=== PATIENT | female | born 1935 | race Caucasian/White ===

== ENCOUNTER → 2016-03-20 | Outpatient (CLI) | payer MEDICARE, BC ==
[~2016-03-20] MED LIST: ASPI325T24 PO; ATEN1TAB74 PO; BENZ100 PO; BISMS PO; FEXO180T PO; LACT PO; LIPI40TA PO; LOPE2 PO; LORA-474 PO; MAXZ25 PO; METF500 PO; SYNT125T PO; VITA400C70 PO
[2016-03-20 09:18] LABS: BASOPHIL # 0.1 TH/MM3 (0-0.2); BASOPHIL % 0.8 % (0.0-2.0); EOSINOPHIL # 0.2 TH/MM3 (0-0.4); EOSINOPHIL % 2.2 % (0.0-4.0); HEMATOCRIT 38.9 % (35.0-46.0); HEMO FLAGS DIFF FINAL; LYMPH % 41.9 % (9.0-44.0); LYMPHOCYTE # 2.9 TH/MM3 (1.0-4.8); MEAN CELL VOLUME 80.3 FL (80.0-100.0); MEAN CORPUSCULAR HEMOGLOBIN 27.3 PG (27.0-34.0); MONO % 11.2 % (0.0-8.0); NEUT % 43.9 % (16.0-70.0); PLATELET COUNT 282 TH/MM3 (150-450); RED BLOOD COUNT 4.85 MIL/MM3 (4.00-5.30); RED CELL DISTRIBUTION WIDTH 14.9 % (11.6-17.2); WHITE BLOOD COUNT 6.8 TH/MM3 (4.0-11.0)
[2016-03-20 09:27] LABS: BACTERIA, URINE RARE /hpf; BLOOD, URINE NEG (NEG); COMMENT (UR) CULT NOT INDICATED; CULTURE IF INDICATED CULT NOT INDICATED; GLUCOSE,URINE NEG (NEG); HYALINE CAST, URINE 1 /lpf (RARE); KETONE, URINE NEG (NEG); MUCUS URINE FEW /lpf (OCC); NITRITE,URINE NEG (NEG); PH, URINE 5.5 (5.0-8.5); SQUAMOUS EPITHELIAL CELL URINE 4 /hpf (0-5); URINE COLOR YELLOW (YELLW/STRAW)
[2016-03-20 09:53] LABS: ALKALINE PHOSPHATASE 95 U/L (45-117); ALT (GPT) 25 U/L (10-53); ANION GAP 9 MEQ/L (5-15); AST (GOT) 20 U/L (15-37); BICARBONATE 28.9 MEQ/L (21.0-32.0); BLOOD UREA NITROGEN 13 MG/DL (7-18); CHLORIDE 93 MEQ/L (98-107); GLOMERULAR FILTRATION RATE 58 ML/MIN (>89); GLUCOSE,FASTING 141 MG/DL (74-99); HDL CHOLESTEROL 65.9 MG/DL (40.0-60.0); LDL CHOLESTEROL 75 MG/DL (0-99); POTASSIUM 4.5 MEQ/L (3.5-5.1); SODIUM (NA) 131 MEQ/L (136-145); TOTAL BILIRUBIN ADULT 0.5 MG/DL (0.2-1.0)
[2016-03-20 10:25] LABS: MICRO ALBUMIN RANDOM URINE RAW 13.7 MG/L (0.0-30.0)
[2016-03-20 13:43] LABS: HEMOGLOBIN A1a 1.1 %; HEMOGLOBIN A1b 2.5 %; HEMOGLOBIN Ao 81.1 %; HEMOGLOBIN LA1C 2.3 %; HEMOGLOBIN P3 4.6 %
== END ==
LOC: PLAB 08:01
PROVIDERS: ATTEND Internal Medicine
DX: E11.65 Type 2 diabetes mellitus with hyperglycemia (principal); E03.9 Hypothyroidism, unspecified; I10 Essential (primary) hypertension
CPT/HCPCS: 36415; 80053; 80061; 81001; 82043; 83036; 84443; 85025

== ENCOUNTER → 2016-07-17 | Outpatient (CLI) | payer MEDICARE, BC ==
[2016-07-17 10:08] LABS: ANION GAP 10 MEQ/L (5-15); AST (GOT) 26 U/L (15-37); BICARBONATE 29.2 MEQ/L (21.0-32.0); BLOOD UREA NITROGEN 11 MG/DL (7-18); CHLORIDE 90 MEQ/L (98-107); GLOMERULAR FILTRATION RATE 63 ML/MIN (>89); GLUCOSE,FASTING 153 MG/DL (74-99); POTASSIUM 4.1 MEQ/L (3.5-5.1); SODIUM (NA) 129 MEQ/L (136-145)
[2016-07-17 10:09] LABS: ALT (GPT) 31 U/L (10-53)
[2016-07-17 10:12] LABS: ALKALINE PHOSPHATASE 91 U/L (45-117); HDL CHOLESTEROL 54.6 MG/DL (40.0-60.0); LDL CHOLESTEROL 70 MG/DL (0-99); TOTAL BILIRUBIN ADULT 0.6 MG/DL (0.2-1.0)
[2016-07-17 16:35] LABS: HEMOGLOBIN A1a 1.1 %; HEMOGLOBIN A1b 2.7 %; HEMOGLOBIN Ao 80.3 %; HEMOGLOBIN LA1C 2.4 %; HEMOGLOBIN P3 6.1 %
== END ==
LOC: PLAB 08:01
PROVIDERS: ATTEND Internal Medicine
DX: E11.65 Type 2 diabetes mellitus with hyperglycemia (principal)
CPT/HCPCS: 36415; 80053; 80061; 83036

== ENCOUNTER → 2016-10-28 | Outpatient (CLI) | payer MEDICARE, BC ==
[2016-10-28 13:39] LABS: ANION GAP 12 MEQ/L (5-15); AST (GOT) 26 U/L (15-37); BICARBONATE 24.2 MEQ/L (21.0-32.0); BLOOD UREA NITROGEN 19 MG/DL (7-18); CHLORIDE 97 MEQ/L (98-107); GLOMERULAR FILTRATION RATE 61 ML/MIN (>89); GLUCOSE,FASTING 123 MG/DL (74-99); POTASSIUM 4.2 MEQ/L (3.5-5.1); SODIUM (NA) 133 MEQ/L (136-145)
[2016-10-28 13:40] LABS: ALT (GPT) 33 U/L (10-53)
[2016-10-28 13:42] LABS: ALKALINE PHOSPHATASE 84 U/L (45-117); HDL CHOLESTEROL 59.3 MG/DL (40.0-60.0); LDL CHOLESTEROL 64 MG/DL (0-99); TOTAL BILIRUBIN ADULT 0.5 MG/DL (0.2-1.0)
[2016-10-28 14:13] LABS: HEMOGLOBIN A1a 1.2 %; HEMOGLOBIN A1b 2.6 %; HEMOGLOBIN Ao 80.8 %; HEMOGLOBIN LA1C 2.5 %; HEMOGLOBIN P3 4.4 %
== END ==
LOC: PLAB 08:45
PROVIDERS: ATTEND Internal Medicine
DX: E11.65 Type 2 diabetes mellitus with hyperglycemia (principal)
CPT/HCPCS: 36415; 80053; 80061; 83036

== ENCOUNTER 2017-01-07 21:29 | Inpatient (IN) | payer MEDICARE, BC ==
[~2017-01-07] VITALS: Ht 152.4 cm; Wt 80.0 kg
[2017-01-07 21:32] VITALS: BP 205/95; PULSE 74; RESP 16; TEMP 100.3; O2SAT 98
[2017-01-07] MEDS ORDERED: cefTRIAXone INJ 2,000 MG in SODIUM CHLORIDE 0.9% INJ 100 ML IV STA (21:46)
[2017-01-07] MEDS ORDERED: SODIUM CHLOR 0.9% 1000 ML INJ 800 ML IV ONE (21:46)
[2017-01-07] MEDS ORDERED: AZITHROMYCIN INJ 500 MG in SODIUM CHLOR 0.9% 250 ML INJ 250 ML IV STA (21:46)
[2017-01-07] MEDS ORDERED: SODIUM CHLOR 0.9% 1000 ML INJ 1,000 ML IV ONE (21:46)
--- NOTE | 2017-01-07 21:55 | PD ---
HPI Chief Complaint: Respiratory Symptoms Time Seen by Provider: 21:46 Travel History International Travel<30 days: No Contact w/Intl Traveler<30days: No Traveled to known affect area: No History of Present Illness HPI 81 yo F c/o cough and shortness of breath increasing for the past few days. + subjective fever. no chest pain. no nausea or vomiting. a similar episode occurred one year prior ultimately diagnosed as pneumonia with sepsis. pt reprots hx htn, hld, dm2, cad with hx bowel resection. respiratory distress was audible to patient's family member thus prompting tonight's evaluation. PFSH Past Medical History Hx Anticoagulant Therapy: Yes (ASA 325 MG PO DAILY) Arthritis: Yes Anxiety: Yes Cancer: Yes (colon, left breast cancer with lymph node removal) Cardiovascular Problems: Yes (2 STENTS) High Cholesterol: Yes Chemotherapy: Yes (BREAST AND COLON CA) COPD: Yes Coronary Artery Disease: Yes Diabetes: Yes Patient Takes Glucophage: Yes (metformin ) Diminished Hearing: No Diverticulitis: Yes Endocrine: Yes Gastrointestinal Disorders: Yes GERD: Yes Genitourinary: No Hepatitis: No Hiatal Hernia: No Hypertension: Yes Immune Disorder: No Musculoskeletal: Yes Neurologic: No Psychiatric: Yes (ANXIETY) Reproductive: No Respiratory: Yes Myocardial Infarction: Yes Pneumonia: Yes (3 weeks ago ) Radiation Therapy: No Thyroid Disease: Yes Menopausal: Yes : 4 Para: 3 Past Surgical History Abdominal Surgery: Yes (colon resection-r/t diverticulitis) Appendectomy: Yes Body Medical Devices: LEFT BREAST IMPLANT Cholecystectomy: Yes Coronary Stent: Yes (X2 -2002) Eye Surgery: Yes (bilat CATARACT SX) Gynecologic Surgery: Yes (HYSTERECTOMY. RECONSTRUCTION OF BOTH BREASTS) Hysterectomy: Yes Mastectomy: Yes (LEFT 2009 with lymph node removal) Pacemaker: No Other Surgery: Yes Social History Alcohol Use: No Tobacco Use: No Substance Use: No Allergies-Medications (Allergen,Severity, Reaction): Coded Allergies: codeine (Unverified Allergy, Severe, Nausea/Vomiting, 01/07/17) diatrizoate meglumine (Unverified Allergy, Severe, RASH AND ITCHING, 01/07) gadobenic acid (Unverified Allergy, Severe, RASH AND ITCHING, 01/07/17) gadodiamide (Unverified Allergy, Severe, RASH AND ITCHING, 01/07/17) gadoteridol (Unverified Allergy, Severe, RASH AND ITCHING, 01/07/17) iodixanol (Unverified Allergy, Severe, RASH AND ITCHING, 01/07/17) iohexol (Unverified Allergy, Severe, RASH AND ITCHING, 01/07/17) Reported Meds & Prescriptions Reported Meds & Active Scripts Active Reported Synthroid (Levothyroxine Sodium) 125 Mcg Tab 125 Mcg PO DAILY@0600 Lorazepam 1 Mg Tab 1 Mg PO HS Lipitor (Atorvastatin Calcium) 20 Mg Tab 20 Mg PO HS Synthroid (Levothyroxine Sodium) 125 Mcg Tab 125 Mcg PO AC BREAKFAST Claritin (Loratadine) 10 Mg Cap 10 Mg PO NIGHTLY Vitamin E 100 Unit Tab 400 Units PO DAILY Ecotrin Regular Strength (Aspirin) 325 Mg Tabdr 325 Mg PO DAILY Glimepiride 2 Mg Tab 4 Mg PO BID Metformin (Metformin HCl) 500 Mg Tab 500 Mg PO BID [Triamterene-Hctz] 37.5mg-25mg 0.5 Tab PO DAILY Atenolol 50 Mg Tab 50 Mg PO DAILY Atorvastatin (Atorvastatin Calcium) 20 Mg Tab 20 Mg PO NIGHTLY Review of Systems Except as stated in HPI: all other systems reviewed are Neg General / Constitutional: Positive: Fever Cardiovascular: No: Chest Pain or Discomfort Respiratory: Positive: Cough, Shortness of Breath, Wheezing Physical Exam Narrative GENERAL: 81 yo F, WNWD, speaking sentences, sitting upright at the end of her bed SKIN: Warm and dry. HEAD: Atraumatic. Normocephalic. EYES: Pupils equal and round. No scleral icterus. No injection or drainage. ENT: No nasal bleeding or discharge. Mucous membranes pink and moist. NECK: Trachea midline. No JVD. CARDIOVASCULAR: Regular rate and rhythm. RESPIRATORY: Occasional cough. Lungs clear. Minimal wheezing bilaterally. GASTROINTESTINAL: Abdomen soft, non-tender, nondistended. Hepatic and splenic margins not palpable. MUSCULOSKELETAL: Extremities without clubbing, cyanosis, or edema. No obvious deformities. NEUROLOGICAL: Awake and alert. No obvious cranial nerve deficits. Motor grossly within normal limits. Five out of 5 muscle strength in the arms and legs. Normal speech. PSYCHIATRIC: Appropriate mood and affect; insight and judgment normal. Data Data Last Documented VS Vital Signs Date Time Temp Pulse Resp B/P (MAP) Pulse Ox O2 Delivery O2 Flow Rate FiO2 01/07/17 23:20 Room Air 01/07/17 23:20 97 01/07/17 23:20 98.7 78 22 vs reviewed Orders Orders Sepsis Workup Initiated (01/07/17 ) Complete Blood Count With Diff (01/07/17 21:46) Comprehensive Metabolic Panel (01/07/17 21:46) Lactic Acid Sepsis Protocol (01/07/17 21:46) Urinalysis - C+S If Indicated (01/07/17 21:46) Blood Culture (01/07/17 21:46) Chest, Single Ap (01/07/17 21:46) Blood Glucose (01/07/17 21:46) Ecg Monitoring (01/07/17 21:46) Iv Access Insert/Monitor (01/07/17 21:46) Oximetry (01/07/17 21:46) Oxygen Administration (01/07/17 21:46) Acetaminophen (Tylenol) (01/07/17 22:00) Ceftriaxone Inj (Rocephin Inj) (01/07/17 21:46) Azithromycin Inj (Zithromax Inj) (01/07/17 21:46) Acetaminophen (Tylenol) (01/07/17 22:00) Sodium Chlor 0.9% 1000 Ml Inj (Ns 1000 M (01/07/17 21:46) Sodium Chlor 0.9% 1000 Ml Inj (Ns 1000 M (01/07/17 21:46) B-Type Natriuretic Peptide (01/07/17 22:06) Influenzae A/B Antigen (01/07/17 22:10) Urine Culture (01/07/17 23:18) Group A Rapid Strep Screen (01/08/17 00:27) Sodium Chlorid 0.9% 500 Ml Inj (Ns 500 M (01/08/17 00:30) Admit Order (Ed Use Only) (01/08/17 ) Full Stack Developer / Telemetry [email or web address] (01/08/17 00:42) Vital Signs (Adult) Q4H (01/08/17 00:42) Activity Oob With Assistance (01/08/17 00:42) Notify Dr: Other (01/08/17 00:42) Labs Laboratory Tests Test 01/07/17 23:05 01/07/17 23:18 01/07/17 23:45 White Blood Count 10.6 TH/MM3 Red Blood Count 4.37 MIL/MM3 Hemoglobin 12.0 GM/DL Hematocrit 35.0 % Mean Corpuscular Volume 80.1 FL Mean Corpuscular Hemoglobin 27.5 PG Mean Corpuscular Hemoglobin Concent 34.3 % Red Cell Distribution Width 14.6 % Platelet Count 326 TH/MM3 Mean Platelet Volume 7.6 FL Neutrophils (%) (Auto) 62.4 % Lymphocytes (%) (Auto) 25.6 % Monocytes (%) (Auto) 10.6 % Eosinophils (%) (Auto) 0.8 % Basophils (%) (Auto) 0.6 % Neutrophils # (Auto) 6.6 TH/MM3 Lymphocytes # (Auto) 2.7 TH/MM3 Monocytes # (Auto) 1.1 TH/MM3 Eosinophils # (Auto) 0.1 TH/MM3 Basophils # (Auto) 0.1 TH/MM3 CBC Comment DIFF FINAL Differential Comment Blood Urea Nitrogen 27 MG/DL Creatinine 1.12 MG/DL Random Glucose 140 MG/DL Total Protein 8.3 GM/DL Albumin 3.6 GM/DL Calcium Level 8.7 MG/DL Alkaline Phosphatase 111 U/L Aspartate Amino Transf (AST/SGOT) 21 U/L Alanine Aminotransferase (ALT/SGPT) 28 U/L Total Bilirubin 0.4 MG/DL Sodium Level 123 MEQ/L Potassium Level 3.4 MEQ/L Chloride Level 89 MEQ/L Carbon Dioxide Level 23.4 MEQ/L Anion Gap 11 MEQ/L Estimat Glomerular Filtration Rate 47 ML/MIN B-Type Natriuretic Peptide 26 PG/ML Urine Color YELLOW Urine Turbidity HAZY Urine pH 5.0 Urine Specific [place] 1.014 Urine Protein TRACE mg/dL Urine Glucose (UA) NEG mg/dL Urine Ketones NEG mg/dL Urine Occult Blood TRACE Urine Nitrite NEG Urine Bilirubin NEG Urine Urobilinogen LESS THAN 2.0 MG/DL Urine Leukocyte Esterase MOD Urine RBC 1 /hpf Urine WBC 7 /hpf Urine Squamous Epithelial Cells 6 /hpf Urine Transitional Epithelial Cells <1 /hpf Urine Bacteria RARE /hpf Urine Hyaline Casts 6 /lpf Urine Mucus FEW /lpf Microscopic Urinalysis Comment CATH-CULTURE IND Lactic Acid Level 2.6 mmol/L MDM Medical Decision Making Medical Screen Exam Complete: Yes Emergency Medical Condition: Yes Medical Record Reviewed: Yes Differential Diagnosis sepsis, pna, bronchitis Narrative Course presentation could be consistent with sepsis work up started in [facility] with plan for transfer to medical bed Steve Guaman MD Jan 07, 2017 21:55
[2017-01-07] MEDS ORDERED: ACETAMINOPHEN 325 MG TAB PO ONE ×2 (22:00)
--- NOTE | 2017-01-07 22:08 | RADRPT ---
EXAM DATE/TIME: 01/07/2017 19:55 [facility] COMPARISON: CHEST SINGLE AP, May 01, 2015, 2:51. INDICATIONS : Cough MEDICAL HISTORY : Carcinoma, breast. Carcinoma, colon. SURGICAL HISTORY : None. ENCOUNTER: Initial ACUITY: 3 weeks PAIN SCORE: 0/10 LOCATION: Bilateral chest FINDINGS: A single view of the chest demonstrates mild basilar atelectasis. No effusion. No pneumothorax. Heart size within normal limits. Tortuous aorta. CONCLUSION: 1. Mild basilar atelectasis. No effusion or pneumothorax. Rod Posey MD on January 07, 2017 at 22:05 Board Certified Radiologist. This report was verified electronically.
[2017-01-07 23:20] VITALS: PULSE 78; RESP 22; TEMP 98.7; O2SAT 98
[2017-01-07 23:58] LABS: AUTOMATED NEUTROPHIL # 6.6 TH/MM3 (1.8-7.7); BASOPHIL # 0.1 TH/MM3 (0-0.2); BASOPHIL % 0.6 % (0.0-2.0); EOSINOPHIL # 0.1 TH/MM3 (0-0.4); EOSINOPHIL % 0.8 % (0.0-4.0); HEMO FLAGS DIFF FINAL; LYMPH % 25.6 % (9.0-44.0); LYMPHOCYTE # 2.7 TH/MM3 (1.0-4.8); MEAN CELL VOLUME 80.1 FL (80.0-100.0); MEAN CORPUSCULAR HEMOGLOBIN 27.5 PG (27.0-34.0); MEAN CORPUSCULAR HGB CONC 34.3 % (32.0-36.0); MONO % 10.6 % (0.0-8.0); NEUT % 62.4 % (16.0-70.0); PLATELET COUNT 326 TH/MM3 (150-450); RED BLOOD COUNT 4.37 MIL/MM3 (4.00-5.30); RED CELL DISTRIBUTION WIDTH 14.6 % (11.6-17.2); WHITE BLOOD COUNT 10.6 TH/MM3 (4.0-11.0)
[2017-01-08] VITALS (8 sets, daily range): BP systolic 100–131; BP diastolic 45–60; PULSE 58–73; RESP 18–20; TEMP 95.9–99.5; O2SAT 96–99
[2017-01-08 00:11] LABS: BACTERIA, URINE RARE /hpf; BLOOD, URINE TRACE (NEG); COMMENT (UR) CATH-CULTURE IND; CULTURE IF INDICATED CATH CULTURE IND; GLUCOSE,URINE NEG (NEG); HYALINE CAST, URINE 6 /lpf (RARE); KETONE, URINE NEG (NEG); MUCUS URINE FEW /lpf (OCC); NITRITE,URINE NEG (NEG); SQUAMOUS EPITHELIAL CELL URINE 6 /hpf (0-5); TRANSITIONAL EPI CELLS, URINE <1 /hpf; URINE COLOR YELLOW (YELLW/STRAW)
[2017-01-08 00:19] LABS: ALKALINE PHOSPHATASE 111 U/L (45-117); ALT (GPT) 28 U/L (10-53); ANION GAP 11 MEQ/L (5-15); AST (GOT) 21 U/L (15-37); BICARBONATE 23.4 MEQ/L (21.0-32.0); BLOOD UREA NITROGEN 27 MG/DL (7-18); CHLORIDE 89 MEQ/L (98-107); GLOMERULAR FILTRATION RATE 47 ML/MIN (>89); POTASSIUM 3.4 MEQ/L (3.5-5.1); TOTAL BILIRUBIN ADULT 0.4 MG/DL (0.2-1.0)
[2017-01-08 00:22] LABS: SODIUM (NA) 123 MEQ/L (136-145)
[2017-01-08] MEDS ORDERED: SODIUM CHLORID 0.9% 500 ML INJ 500 ML IV ONE (00:30)
--- NOTE | 2017-01-08 00:50 | PD ---
Physical Exam Narrative Patient was signed out to me pending laboratory results. Briefly patient comes in complaining of sinus congestion, sore throat, difficulty breathing ongoing for approximately 3 weeks. Patient states she was on antibiotics previously for 8 days last dose approximately 2 weeks ago without improvement for symptoms. Symptoms are worse at night when she lays down, but do not be able to breathe. Patient denies any chest pain with this, nausea, vomiting, or headache. Patient states she constantly blows out yellowish-green mucus from her nose. Patient states she takes an allergy pill at night without improvement of her symptoms. GENERAL: Well-developed, well nourished, in no acute distress, and non-ill appearing. SKIN: Focused skin assessment warm and dry. HEAD: Atraumatic. Normocephalic. EYES: Pupils equal and round. EOMI. No scleral icterus. No injection or drainage. ENT: No nasal bleeding or discharge. Mucous membranes pink and moist. Tympanic membranes pearly jorgensen bilaterally. Posterior phalanx non-Erythematous without exudate. Uvula is midline. No tenderness to patient sinuses to palpation. NECK: Trachea midline. Supple. No nuclear rigidity. CARDIOVASCULAR: Regular rate and rhythm. No murmur appreciated. RESPIRATORY: No accessory muscle use. No respiratory distress. Clear to auscultation. Breath sounds equal bilaterally. MUSCULOSKELETAL: No obvious deformities. No clubbing. No cyanosis. No edema. Full range of motion. NEUROLOGICAL: Awake and alert. No obvious cranial nerve deficits. Motor grossly within normal limits. Normal speech. PSYCHIATRIC: Appropriate mood and affect; insight and judgment normal. Data Data Last Documented VS Vital Signs Date Time Temp Pulse Resp B/P (MAP) Pulse Ox O2 Delivery O2 Flow Rate FiO2 01/07/17 23:20 98.7 78 22 98 Room Air Orders Orders Sepsis Workup Initiated (01/07/17 ) Complete Blood Count With Diff (01/07/17 21:46) Comprehensive Metabolic Panel (01/07/17 21:46) Lactic Acid Sepsis Protocol (01/07/17 21:46) Urinalysis - C+S If Indicated (01/07/17 21:46) Blood Culture (01/07/17 21:46) Chest, Single Ap (01/07/17 21:46) Blood Glucose (01/07/17 21:46) Ecg Monitoring (01/07/17 21:46) Iv Access Insert/Monitor (01/07/17 21:46) Oximetry (01/07/17 21:46) Oxygen Administration (01/07/17 21:46) Acetaminophen (Tylenol) (01/07/17 22:00) Ceftriaxone Inj (Rocephin Inj) (01/07/17 21:46) Azithromycin Inj (Zithromax Inj) (01/07/17 21:46) Acetaminophen (Tylenol) (01/07/17 22:00) Sodium Chlor 0.9% 1000 Ml Inj (Ns 1000 M (01/07/17 21:46) Sodium Chlor 0.9% 1000 Ml Inj (Ns 1000 M (01/07/17 21:46) B-Type Natriuretic Peptide (01/07/17 22:06) Influenzae A/B Antigen (01/07/17 22:10) Urine Culture (01/07/17 23:18) Group A Rapid Strep Screen (01/08/17 00:27) Sodium Chlorid 0.9% 500 Ml Inj (Ns 500 M (01/08/17 00:30) Admit Order (Ed Use Only) (01/08/17 ) Dusting And Brushing Machine Operator / Telemetry [email or web address].[email or web address] (01/08/17 00:42) Vital Signs (Adult) Q4H (01/08/17 00:42) Diet 1999 Ada Cons Carb (01/08/17 Breakfast) Activity Oob With Assistance (01/08/17 00:42) Notify Dr: Other (01/08/17 00:42) Labs Laboratory Tests Test 01/07/17 23:05 01/07/17 23:18 01/07/17 23:45 White Blood Count 10.6 TH/MM3 Red Blood Count 4.37 MIL/MM3 Hemoglobin 12.0 GM/DL Hematocrit 35.0 % Mean Corpuscular Volume 80.1 FL Mean Corpuscular Hemoglobin 27.5 PG Mean Corpuscular Hemoglobin Concent 34.3 % Red Cell Distribution Width 14.6 % Platelet Count 326 TH/MM3 Mean Platelet Volume 7.6 FL Neutrophils (%) (Auto) 62.4 % Lymphocytes (%) (Auto) 25.6 % Monocytes (%) (Auto) 10.6 % Eosinophils (%) (Auto) 0.8 % Basophils (%) (Auto) 0.6 % Neutrophils # (Auto) 6.6 TH/MM3 Lymphocytes # (Auto) 2.7 TH/MM3 Monocytes # (Auto) 1.1 TH/MM3 Eosinophils # (Auto) 0.1 TH/MM3 Basophils # (Auto) 0.1 TH/MM3 CBC Comment DIFF FINAL Differential Comment Blood Urea Nitrogen 27 MG/DL Creatinine 1.12 MG/DL Random Glucose 140 MG/DL Total Protein 8.3 GM/DL Albumin 3.6 GM/DL Calcium Level 8.7 MG/DL Alkaline Phosphatase 111 U/L Aspartate Amino Transf (AST/SGOT) 21 U/L Alanine Aminotransferase (ALT/SGPT) 28 U/L Total Bilirubin 0.4 MG/DL Sodium Level 123 MEQ/L Potassium Level 3.4 MEQ/L Chloride Level 89 MEQ/L Carbon Dioxide Level 23.4 MEQ/L Anion Gap 11 MEQ/L Estimat Glomerular Filtration Rate 47 ML/MIN B-Type Natriuretic Peptide 26 PG/ML Urine Color YELLOW Urine Turbidity HAZY Urine pH 5.0 Urine Specific [place] 1.014 Urine Protein TRACE mg/dL Urine Glucose (UA) NEG mg/dL Urine Ketones NEG mg/dL Urine Occult Blood TRACE Urine Nitrite NEG Urine Bilirubin NEG Urine Urobilinogen LESS THAN 2.0 MG/DL Urine Leukocyte Esterase MOD Urine RBC 1 /hpf Urine WBC 7 /hpf Urine Squamous Epithelial Cells 6 /hpf Urine Transitional Epithelial Cells <1 /hpf Urine Bacteria RARE /hpf Urine Hyaline Casts 6 /lpf Urine Mucus FEW /lpf Microscopic Urinalysis Comment CATH-CULTURE IND Lactic Acid Level 2.6 mmol/L MDM Supervised Visit with BRENDA: No Narrative Course Patient was seen and examined. Labs were reviewed. She was given 500 bolus of normal saline secondary to low sodium. Discussed all findings and plan of care with patient and family. Patient is agreeable for admission. All questions were answered. Discussed patient with hospitalist who is agreeable to admit the patient. Physician Communication Physician Communication [id number] Suarez, who is agreeable to admit the patient. Diagnosis Primary Impression: Hyponatremia Additional Impressions: Sinus congestion Elevated lactic acid level Dyspnea Qualified Codes: R06.00 - Dyspnea, unspecified Admitting Information Admitting Physician Requests: Observation Condition: Stable Jostin Bowles Jan 08, 2017 00:50
[2017-01-08] MEDS ORDERED: CLAR10CA3 PO (01:06)
[2017-01-08] MEDS ORDERED: VITA100T65 PO (01:06)
[2017-01-08] MEDS ORDERED: TRIAMTERENE-HCTZ PO (01:06)
[2017-01-08] MEDS ORDERED: GLIM2TAB PO (01:06)
[2017-01-08] MEDS ORDERED: METF500T PO (01:06)
[2017-01-08] MEDS ORDERED: ATOR20TA15 PO (01:06)
[2017-01-08] MEDS ORDERED: LORA1TAB12 PO ×2 (01:06→02:36)
[2017-01-08] MEDS ORDERED: ASPI-146 PO (01:06)
[2017-01-08] MEDS ORDERED: ATEN50TA PO (01:06)
[2017-01-08] MEDS ORDERED: LEVO.125 PO ×2 (01:12→02:41)
[2017-01-08] MEDS ORDERED: SODIUM CHLOR 0.9% 1000 ML INJ 1,000 ML IV SCH (01:13)
[2017-01-08] MEDS ORDERED: MAGNESIUM HYDROXIDE SUSP 30 ML CUP PO PRN (01:15)
[2017-01-08] MEDS ORDERED: SODIUM CHLORIDE 0.9% FLUSH 10 ML FLUSH IV FLUSH PRN (01:15)
[2017-01-08] MEDS ORDERED: NALOXONE HCL 0.4 MG/ML AMP IV PUSH PRN (01:15)
[2017-01-08] MEDS ORDERED: SENNOSIDES 8.6 MG TAB PO PRN (01:15)
[2017-01-08] MEDS ORDERED: POTASSIUM CHLORIDE 20 MEQ CONTROLLED RELEASE TAB PO ONE (01:15)
[2017-01-08] MEDS ORDERED: ACETAMINOPHEN 325 MG TAB PO PRN (01:15)
[2017-01-08] MEDS ORDERED: LACTULOSE SYRUP 20 GM/30 ML CUP PO PRN (01:15)
[2017-01-08] MEDS ORDERED: ONDANSETRON HCL 4 MG/2 ML VIAL IVP PRN (01:15)
[2017-01-08] MEDS ORDERED: BISACODYL 10 MG SUPP RECTAL PRN (01:15)
[2017-01-08] MEDS ORDERED: GLUCAGON 1 MG/ML VIAL OTHER PRN (01:30)
[2017-01-08] MEDS ORDERED: DEXTROSE 50% IN WATER 50 ML VIAL(D50) IV PUSH PRN (01:30)
[2017-01-08] MEDS ORDERED: PILL SPLITTER OTHER PRN (01:45)
[2017-01-08 01:47] LABS: LACTIC ACID GHOST NOT REPORTABLE
[2017-01-08] MEDS ORDERED: LIPI20TA PO (02:34)
[2017-01-08] MEDS ORDERED: LORazepam 1 MG TAB PO ONE (03:15)
--- NOTE | 2017-01-08 03:27 | HHI.HP ---
[facility] Terrence Bland MD Admission Diagnosis hyponatremia, sinus congestion Diagnoses: Travel History International Travel<30 Days: No Contact w/Intl Traveler <30 Da: No Traveled to Known Affected Are: No History of Present Illness 81-year-old female with past medical history significant for coronary artery disease, CHF, type 2 diabetes mellitus, hypertension, hyperlipidemia, hypothyroidism and a history of breast and colon cancer presents to the emergency department with a chief complaint of a 3 week history of a sinus infection. The patient reports that she is unable to breathe and is feeling more weak than previous. She reports completing a course of antibiotics prescribed to her by her primary care physician, although she does not know the name of the antibiotic. She reports despite completion of the antibiotic her symptoms have not resolved. She endorses subjective fevers. Chest x-ray showed mild basilar atelectasis. No leukocytosis. Afebrile. Satting 96% on room air. Patient was found to have electrolyte abnormalities including a sodium of 123, potassium of 3.4, creatinine of 1.12 and an elevated lactic acid at 2.6. She denies any increasing fatigue and reports she just wants her sinus infection to be cured. Review of Systems Subjective fever/chills Denies blurry vision, otorrhea, rhinorrhea Denies sore throat and cough No chest pain, palpitations, positive shortness of breath No abdominal pain Denies constipation/diarrhea/nausea/vomiting Denies muscle pain/weakness No rashes Past Family Social History Past Medical History Type 2 diabetes mellitus Hyperlipidemia Hypothyroidism Hypertension History of breast cancer History of colon cancer CAD CHF Past Surgical History Cardiac catheterization with stent placement 15 years ago Cholecystectomy Hysterectomy Appendectomy Mastectomy with reconstruction in 2009 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 Reported Medications Reported Meds & Active Scripts Active Reported Synthroid (Levothyroxine Sodium) 125 Mcg Tab 125 Mcg PO DAILY@0600 Lorazepam 1 Mg Tab 1 Mg PO HS Lipitor (Atorvastatin Calcium) 20 Mg Tab 20 Mg PO HS Synthroid (Levothyroxine Sodium) 125 Mcg Tab 125 Mcg PO AC BREAKFAST Claritin (Loratadine) 10 Mg Cap 10 Mg PO NIGHTLY Vitamin E 100 Unit Tab 400 Units PO DAILY Ecotrin Regular Strength (Aspirin) 325 Mg Tabdr 325 Mg PO DAILY Glimepiride 2 Mg Tab 4 Mg PO BID Metformin (Metformin HCl) 500 Mg Tab 500 Mg PO BID [Triamterene-Hctz] 37.5mg-25mg 0.5 Tab PO DAILY Atenolol 50 Mg Tab 50 Mg PO DAILY Atorvastatin (Atorvastatin Calcium) 20 Mg Tab 20 Mg PO NIGHTLY Allergies: Coded Allergies: codeine (Unverified Allergy, Severe, Nausea/Vomiting, 01/07/17) diatrizoate meglumine (Unverified Allergy, Severe, RASH AND ITCHING, 01/07) gadobenic acid (Unverified Allergy, Severe, RASH AND ITCHING, 01/07/17) gadodiamide (Unverified Allergy, Severe, RASH AND ITCHING, 01/07/17) gadoteridol (Unverified Allergy, Severe, RASH AND ITCHING, 01/07/17) iodixanol (Unverified Allergy, Severe, RASH AND ITCHING, 01/07/17) iohexol (Unverified Allergy, Severe, RASH AND ITCHING, 01/07/17) Family History Mother with diabetes mellitus Social History Denies tobacco, alcohol and illicit drugs Physical Exam Vital Signs Vital Signs Date Time Temp Pulse Resp B/P (MAP) Pulse Ox O2 Delivery O2 Flow Rate FiO2 01/08/17 02:15 62 20 111/56 (74) 97 01/08/17 00:47 60 20 102/50 (67) 97 Room Air 01/07/17 23:20 Room Air 01/07/17 23:20 97 Room Air 01/07/17 23:20 98.7 78 22 98 Room Air 01/07/17 21:32 100.3 74 16 205/95 (131) 98 Room Air Physical Exam GENERAL: Elderly female lying in bed SKIN: No rashes, ecchymoses or lesions. Cool and dry. HEAD: Atraumatic. Normocephalic. No temporal or scalp tenderness. EYES: Pupils equal round and reactive. Extraocular motions intact. No scleral icterus. No injection or drainage. ENT: Nose without bleeding, purulent drainage or septal hematoma. Throat without erythema, tonsillar hypertrophy or exudate. Uvula midline. Airway patent. NECK: Trachea midline. No JVD or lymphadenopathy. Supple, nontender, no meningeal signs. CARDIOVASCULAR: Regular rate and rhythm without murmurs, gallops, or rubs. RESPIRATORY: Clear to auscultation. Breath sounds equal bilaterally. No wheezes , rales, or rhonchi. GASTROINTESTINAL: Abdomen soft, non-tender, nondistended. No hepato-splenomegaly , or palpable masses. No guarding. MUSCULOSKELETAL: Extremities without clubbing, cyanosis, or edema. No joint tenderness, effusion, or edema noted. No calf tenderness. Negative Homans sign bilaterally. NEUROLOGICAL: Awake and alert. Cranial nerves II through XII intact. Motor and sensory grossly within normal limits. Normal speech. Laboratory Laboratory Tests Test 01/07/17 23:05 01/07/17 23:18 01/07/17 23:45 01/08/17 02:12 White Blood Count 10.6 Red Blood Count 4.37 Hemoglobin 12.0 Hematocrit 35.0 Mean Corpuscular Volume 80.1 Mean Corpuscular Hemoglobin 27.5 Mean Corpuscular Hemoglobin Concent 34.3 Red Cell Distribution Width 14.6 Platelet Count 326 Mean Platelet Volume 7.6 Neutrophils (%) (Auto) 62.4 Lymphocytes (%) (Auto) 25.6 Monocytes (%) (Auto) 10.6 Eosinophils (%) (Auto) 0.8 Basophils (%) (Auto) 0.6 Neutrophils # (Auto) 6.6 Lymphocytes # (Auto) 2.7 Monocytes # (Auto) 1.1 Eosinophils # (Auto) 0.1 Basophils # (Auto) 0.1 CBC Comment DIFF FINAL Differential Comment Blood Urea Nitrogen 27 Creatinine 1.12 Random Glucose 140 Total Protein 8.3 Albumin 3.6 Calcium Level 8.7 Alkaline Phosphatase 111 Aspartate Amino Transf (AST/SGOT) 21 Alanine Aminotransferase (ALT/SGPT) 28 Total Bilirubin 0.4 Sodium Level 123 Potassium Level 3.4 Chloride Level 89 Carbon Dioxide Level 23.4 Anion Gap 11 Estimat Glomerular Filtration Rate 47 B-Type Natriuretic Peptide 26 Urine Color YELLOW Urine Turbidity HAZY Urine pH 5.0 Urine Specific [place] 1.014 Urine Protein TRACE Urine Glucose (UA) NEG Urine Ketones NEG Urine Occult Blood TRACE Urine Nitrite NEG Urine Bilirubin NEG Urine Urobilinogen LESS THAN 2.0 Urine Leukocyte Esterase MOD Urine RBC 1 Urine WBC 7 Urine Squamous Epithelial Cells 6 Urine Transitional Epithelial Cells <1 Urine Bacteria RARE Urine Hyaline Casts 6 Urine Mucus FEW Microscopic Urinalysis Comment CATH-CULTURE IND Lactic Acid Level 2.6 2.2 Date/Time Source Procedure Growth Status 01/07/17 23:15 Blood Peripheral Aerobic Blood Culture Pending Received 01/07/17 23:15 Blood Peripheral Anaerobic Blood Culture Pending Received 01/08/17 00:45 Throat Group A Streptococcus Screen Pending Received 01/07/17 23:18 Urine Catheterized Urine Urine Culture Pending Received Result Diagram: 01/07/175 01/07/17 2305 Caprini VTE Risk Assessment Caprini VTE Risk Assessment: Mod/High Risk (score >= 2) Caprini Risk Assessment Model Point Value = 1 Point Value = 2 Point Value = 3 Point Value = 5 Age 41-60 Minor surgery BMI > 25 kg/m2 Swollen legs Varicose veins or History of unexplained or recurrent spontaneous Oral contraceptives or hormone replacement Sepsis (< 1 month) Serious lung disease, including pneumonia (< 1 month) Abnormal pulmonary function Acute myocardial infarction Congestive heart failure (< 1 month) History of inflammatory bowel disease Medical patient at bed rest Age 61-74 Arthroscopic surgery Major open surgery (> 45 min) Laparoscopic surgery (> 45 min) Malignancy Confined to bed (> 72 hours) Immobilizing plaster cast Central venous access Age >= 75 History of VTE Family history of VTE Factor V Leiden Prothrombin 26903A Lupus anticoagulant Anticardiolipin antibodies Elevated serum homocysteine Heparin-induced thrombocytopenia Other congenital or acquired thrombophilia Stroke (< 1 month) Elective arthroplasty Hip, pelvis, or leg fracture Acute spinal cord injury (< 1 month) Prophylaxis Regimen Total Risk Factor Score Risk Level Prophylaxis Regimen 0-1 Low Early ambulation 2 Moderate Order ONE of the following: *Sequential Compression Device (SCD) *Heparin 5000 units SQ BID 3-4 Higher Order ONE of the following medications: *Heparin 5000 units SQ TID *Enoxaparin/Lovenox 40 mg SQ daily (WT < 150 kg, CrCl > 30 mL/min) *Enoxaparin/Lovenox 30 mg SQ daily (WT < 150 kg, CrCl > 10-29 mL/min) *Enoxaparin/Lovenox 30 mg SQ BID (WT < 150 kg, CrCl > 30 mL/min) AND/OR *Sequential Compression Device (SCD) 5 or more Highest Order ONE of the following medications: *Heparin 5000 units SQ TID (Preferred with Epidurals) *Enoxaparin/Lovenox 40 mg SQ daily (WT < 150 kg, CrCl > 30 mL/min) *Enoxaparin/Lovenox 30 mg SQ daily (WT < 150 kg, CrCl > 10-29 mL/min) *Enoxaparin/Lovenox 30 mg SQ BID (WT < 150 kg, CrCl > 30 mL/min) AND *Sequential Compression Device (SCD) Assessment and Plan Assessment and Plan 81-year-old female with a past medical history significant for coronary artery disease, CHF, type 2 diabetes mellitus, hypothyroidism, hypertension and hyperlipidemia presented for evaluation of increasing shortness of breath over the past 3 weeks. Patient was found to have electrolyte abnormalities including hyponatremia, hypokalemia and an elevated lactic acid. 1. Hyponatremia Gentle IV fluid hydration Fluid restriction Monitor BMP 2. Acute sinusitis/SOB Patient's difficulty breathing seems to be related to her upper airway congestion Chest x-ray negative for acute process, reviewed by me Lungs CTAB Augmentin 3. Hypokalemia Supplemented with by mouth potassium Follow BMP 4. Type 2 diabetes mellitus SSI 5. CAD/hypothyroidism/hypertension/hyperlipidemia/anxiety Continue home medications FEN Heart healthy diet NS at 75 cc/hr Electrolytes: Monitor and replete when necessary Heparin Physician Certification 2 Midnight Certification Type: Admission for Inpatient Services Order for Inpatient Services The services are ordered in accordance with Medicare regulations or non- Medicare payer requirements, as applicable. In the case of services not specified as inpatient-only, they are appropriately provided as inpatient services in accordance with the 2-midnight benchmark. Estimated LOS (days): 2 2 days is the estimated time the patient will need to remain in the hospital, assuming treatment plan goals are met and no additional complications. Post-Hospital Plan: Not yet determined Cherelle Suarez MD Jan 08, 2017 03:27
[2017-01-08 04:32] LABS: LACTIC ACID GHOST NOT REPORTABLE
[2017-01-08] MEDS: LEVOTHYROXINE SODIUM 125 MCG TAB PO SCH (05:36)
[2017-01-08] MEDS: HEPARIN SODIUM - SQ 10,000 UNITS/ML VIAL SQ SCH ×3 (05:37→21:02)
[2017-01-08 06:07] LABS: AUTOMATED NEUTROPHIL # 4.8 TH/MM3 (1.8-7.7); BASOPHIL # 0.1 TH/MM3 (0-0.2); BASOPHIL % 0.6 % (0.0-2.0); EOSINOPHIL # 0.1 TH/MM3 (0-0.4); EOSINOPHIL % 1.5 % (0.0-4.0); HEMATOCRIT 31.3 % (35.0-46.0); HEMO FLAGS DIFF FINAL; LYMPH % 29.7 % (9.0-44.0); LYMPHOCYTE # 2.6 TH/MM3 (1.0-4.8); MEAN CELL VOLUME 80.9 FL (80.0-100.0); MEAN CORPUSCULAR HEMOGLOBIN 27.1 PG (27.0-34.0); MEAN CORPUSCULAR HGB CONC 33.6 % (32.0-36.0); MONO % 12.2 % (0.0-8.0); PLATELET COUNT 280 TH/MM3 (150-450); RED BLOOD COUNT 3.87 MIL/MM3 (4.00-5.30); RED CELL DISTRIBUTION WIDTH 14.1 % (11.6-17.2); WHITE BLOOD COUNT 8.6 TH/MM3 (4.0-11.0)
[2017-01-08 06:31] LABS: BICARBONATE 26.2 MEQ/L (21.0-32.0); POTASSIUM 3.5 MEQ/L (3.5-5.1)
[2017-01-08] MEDS: INSULIN ASPART SUPPLEMENTAL SCALE SQ SCH ×4 (08:00→21:00)
--- NOTE | 2017-01-08 08:09 | HHI.PR ---
Addendum to Inpatient Note Addendum Reason: Additional Documentation Additional Information Pt states that she feels very congested and has been having lots of phlegm, greenish/brown. no longer has ear pain. states this has been going for the past 3 weeks. doesn't remember which abx she was put on but states she can ask her daughter in law to let us know. As far as hx of CHF she denies any hx. states she had stents placed in the past but is not on lasix. she also denies any burning w urination or increase urinary frequency to suggest a UTI, she did note a decrease in urinary frequency. on exam, lungs are clear. she does have congestion and does have greenish nasal drainage. no pain w palpation of the maxillary or frontal sinuses. 1. Hyponatremia Gentle IV fluid hydration but will decrease rate to 40ml/hr. Monitor BMP q8hrs. Fluid restriction 2. Acute sinusitis/SOB Patient's difficulty breathing seems to be related to her upper airway congestion Chest x-ray negative for acute process. Encourage IS use q1hr while awake. Lungs CTAB switch to unasyn IV q6hrs as she does have lots of nasal drainage and phlegm and per pt this has been going on x 3 weeks. will get sputum cx for now as well add some flonase to see if this help relieve her symptoms. Elevated lactic acid, suspect from dehydration. now resolved. f/u blood cx and GAS cultures flu and rapid strep neg. check 2D echo as last one in records was in 2002 w EF of 65% but pt admits to feeling sob w ambulation. 3. Hypokalemia resolved. supplement as needed 4. Type 2 diabetes mellitus SSI 5. CAD/hypothyroidism/hypertension/hyperlipidemia/anxiety Continue home medications FEN Heart healthy diet w fluid restriction NS at 40 cc/hr Electrolytes: Monitor and replete when necessary Heparin Erin Austin MD Jan 08, 2017 08:08
[2017-01-08] MEDS: ATENOLOL 50 MG TAB PO SCH (08:24)
[2017-01-08] MEDS: ASPIRIN EC 325 MG TABEC PO SCH (08:25)
[2017-01-08] MEDS: DOCUSATE SODIUM 50 MG/SENNA 8.6 MG TAB PO SCH ×2 (08:32→21:00)
[2017-01-08] MEDS: SODIUM CHLORIDE 0.9% FLUSH 10 ML FLUSH IV FLUSH SCH ×2 (08:42→21:00)
[2017-01-08] MEDS ORDERED: AMOXICILLIN/CLAVULANATE K 875 MG TAB PO SCH (09:00)
[2017-01-08] MEDS ORDERED: AZITHROMYCIN 250 MG TAB PO SCH (09:00)
[2017-01-08] MEDS: TRIAMTERENE/HCTZ 37.5 MG/25 MG TAB PO SCH (09:56)
[2017-01-08] MEDS: FLUTICASONE PROPIONATE 50 MCG/ACT 16 GM NASAL SPRAY NASAL SCH (09:56)
[2017-01-08] MEDS ORDERED: AMPICILLIN-SULBACTAM INJ 1,500 MG VIAL IM SCH (10:00)
[2017-01-08] MEDS: AMPICILLIN-SULBACTAM INJ 1,500 MG in SODIUM CHLORIDE 0.9% INJ 100 ML IV SCH ×3 (11:02→22:58)
[2017-01-08 12:42] LABS: BICARBONATE 24.4 MEQ/L (21.0-32.0); POTASSIUM 3.4 MEQ/L (3.5-5.1)
--- NOTE | 2017-01-08 15:17 | ECHRPT ---
Indication: Syncope and collapse CONCLUSIONS The left ventricular systolic function is low normal with an estimated ejection fraction in the rang e of 50- 55%. Wall thickness is measured at the upper limits of normal. Normal left ventricular size. There is mild tricuspid valve regurgitation. The estimated pulmonary arterial pressure is 34.6 mmHg. Trivial pulmonary valve regurgitation. BP: 133 / 60 HR: 60 Rhythm: Other MEASUREMENTS (Male / Female) Normal Values Technical Quality:Fair 2D ECHO LV Diastolic Diameter PLAX 5.0 cm 4.2 - 5.9 / 3.9 - 5.3 cm LV Systolic Diameter PLAX 3.9 cm IVS Diastolic Thickness 0.9 cm 0.6 - 1.0 / 0.6 - 0.9 cm LVPW Diastolic Thickness 0.9 cm 0.6 - 1.0 / 0.6 - 0.9 cm LV Relative Wall Thickness 0.4 LVOT Diameter 2.1 cm M-MODE Aortic Root Diameter MM 2.9 cm LA Systolic Diameter MM 3.8 cm LA Ao Ratio MM 1.3 AV Cusp Separation MM 2.3 cm DOPPLER AV Peak Velocity 126.0 cm/s AV Peak Gradient 6.4 mmHg LVOT Peak Velocity 91.8 cm/s LVOT Peak Gradient 3.4 mmHg AV Area Cont Eq pk 2.5 cm Mitral E Point Velocity 84.9 cm/s Mitral A Point Velocity 76.0 cm/s Mitral E to A Ratio 1.1 LV E' Lateral Velocity 6.6 cm/s Mitral E to LV E' Lateral Ratio 12.8 LV E' Septal Velocity 4.7 cm/s Mitral E to LV E' Septal Ratio 18.1 TR Peak Velocity 248.0 cm/s TR Peak Gradient 24.6 mmHg Right Atrial Pressure 10.0 mmHg Pulmonary Artery Systolic Pressu 34.6 mmHg Right Ventricular Systolic Press 34.6 mmHg PV Peak Velocity 109.0 cm/s PV Peak Gradient 4.8 mmHg FINDINGS LEFT VENTRICLE The left ventricular systolic function is low normal with an estimated ejection fraction in the rang e of 50- 55%. Wall thickness is measured at the upper limits of normal. Normal left ventricular size. RIGHT VENTRICLE Normal right ventricular size and systolic function. LEFT ATRIUM The left atrial size is normal. RIGHT ATRIUM The right atrial size is normal. ATRIAL SEPTUM Normal atrial septal thickness without atrial level shunting by limited color doppler interrogation. AORTA The aortic root and proximal ascending aorta are normal in size on limited imaging. MITRAL VALVE Structurally normal mitral valve. No mitral valve stenosis or regurgitation. AORTIC VALVE Trileaflet aortic valve. No aortic valve stenosis or regurgitation. TRICUSPID VALVE There is mild tricuspid valve regurgitation. The estimated pulmonary arterial pressure is 34.6 mmHg. PULMONARY VALVE Trivial pulmonary valve regurgitation. VESSELS The inferior vena cava is normal in size. PERICARDIUM No pericardial effusion. Owen Ross MD, FACC (Electronically Signed) Final Date:08 January 2017 15:16
[2017-01-08 19:20] LABS: BICARBONATE 23.2 MEQ/L (21.0-32.0); POTASSIUM 3.5 MEQ/L (3.5-5.1)
[2017-01-08] MEDS: LORazepam 1 MG TAB PO SCH (21:00)
[2017-01-08] MEDS ORDERED: cefTRIAXone INJ 1,000 MG in SODIUM CHLORIDE 0.9% INJ 100 ML IV SCH (21:00)
[2017-01-08] MEDS: ATORVASTATIN 20 MG TAB PO SCH (21:01)
[2017-01-08] MEDS: SODIUM CHLOR 0.9% 1000 ML INJ 1,000 ML IV SCH (23:00)
[2017-01-09] VITALS (8 sets, daily range): BP systolic 108–140; BP diastolic 50–58; PULSE 62–88; RESP 16–20; TEMP 98.3–99.5; O2SAT 94–98
[2017-01-09] MEDS ORDERED: SODIUM CHLOR 0.9% 1000 ML INJ 500 ML IV SCH (01:13)
[2017-01-09 04:10] LABS: BICARBONATE 24.8 MEQ/L (21.0-32.0); POTASSIUM 3.4 MEQ/L (3.5-5.1)
[2017-01-09] MEDS: HEPARIN SODIUM - SQ 10,000 UNITS/ML VIAL SQ SCH ×3 (05:36→21:00)
[2017-01-09] MEDS: AMPICILLIN-SULBACTAM INJ 1,500 MG in SODIUM CHLORIDE 0.9% INJ 100 ML IV SCH ×4 (05:37→22:39)
[2017-01-09] MEDS: LEVOTHYROXINE SODIUM 125 MCG TAB PO SCH (05:43)
--- NOTE | 2017-01-09 07:54 | HHI.PR ---
Subjective Remarks Pt states that her congestion is much improved. Now getting clear nasal discharge. Did have 3 episodes of loose stools, 2 last night and one this morning. coughing but less. Please w progress. would like some immodium Objective Vitals Vital Signs Date Time Temp Pulse Resp B/P (MAP) Pulse Ox O2 Delivery O2 Flow Rate FiO2 01/09/17 04:11 99.5 73 20 108/53 (71) 96 01/09/17 00:13 98.6 71 20 122/50 (74) 96 01/08/17 20:11 99.5 73 18 113/48 (69) 98 01/08/17 15:50 98.9 73 18 100/45 (63) 96 01/08/17 12:00 95.9 58 18 110/50 (70) 99 01/08/17 08:00 62 01/08/17 07:52 96.7 66 18 107/50 (69) 97 I/O 01/08/17 01/08/17 01/08/17 01/09/17 01/09/17 01/09/17 07:00 15:00 23:00 07:00 15:00 23:00 Intake Total 1220 ml 360 ml 680 ml Balance 1220 ml 360 ml 680 ml Intake Oral 120 ml 360 ml IV Total 1100 ml 680 ml # Voids 0 1 2 2 # Bowel Movements 0 1 0 3 Result Diagram: 01/08/17 0516 01/09/17 0318 Imaging Last Impressions Chest X-Ray 01/07/172145 Signed Impressions: Service Date/Time: December 19:55 - CONCLUSION: 1. Mild basilar atelectasis. No effusion or pneumothorax. Rod Posey MD Objective Remarks GENERAL: Elderly female lying in bed EYES: Extraocular motions intact. ENT: Airway patent. less secretions noted. Pt did blow her nose in my presence and only clear discharge was noted. NECK: Trachea midline. CARDIOVASCULAR: Regular rate and rhythm without murmurs. RESPIRATORY: Clear to auscultation. Breath sounds equal bilaterally. No wheezes. GASTROINTESTINAL: Abdomen soft, non-tender, nondistended. No guarding. MUSCULOSKELETAL: Extremities without edema. No calf tenderness. Negative Homans sign bilaterally. NEUROLOGICAL: Awake and alert. Cranial nerves II through XII intact. Motor and sensory grossly within normal limits. Normal speech. A/P Assessment and Plan 1. Hyponatremia improving, now up to 129. Gentle IV fluid hydration, increase rate to 50ml/hr. Monitor BMP q8hrs. Fluid restriction serum and urine osm, Na and Cr 2. Acute sinusitis/SOB Patient's difficulty breathing seems to be related to her upper airway congestion Chest x-ray negative for acute process. Encourage IS use q1hr while awake. Lungs CTAB consider CT sinuses if no improvement, however she is so will hold off. on unasyn IV q6hrs as she does have lots of nasal drainage and phlegm and per pt this has been going on x 3 weeks. sputum cx pending flonase to see if this help relieve her symptoms. Elevated lactic acid, suspect from dehydration. now resolved. blood cx and GAS cultures neg to date flu and rapid strep neg. 2D echo shows EF of 50-55% 3. Diarrhea 3 episodes check C. Diff lactinex and one dose of Imodium 4. Hypokalemia 3.4 today, give 40mEq kcl x 1 5. Type 2 diabetes mellitus SSI 6. CAD/hypothyroidism/hypertension/hyperlipidemia/anxiety Continue home medications FEN Heart healthy diet w fluid restriction NS at 50 cc/hr Electrolytes: Monitor and replete when necessary Heparin Discharge Planning anticipate d/c in AM on po Erin Rojas MD Jan 09, 2017 07:54
[2017-01-09] MEDS: INSULIN ASPART SUPPLEMENTAL SCALE SQ SCH ×4 (08:00→20:59)
[2017-01-09] MEDS ORDERED: POTASSIUM CHLORIDE 20 MEQ CONTROLLED RELEASE TAB PO ONE (08:00)
[2017-01-09] MEDS ORDERED: LOPERAMIDE HCL 2 MG CAP PO ONE (08:30)
[2017-01-09] MEDS: ATENOLOL 50 MG TAB PO SCH (08:50)
[2017-01-09] MEDS: LACTOBACILLUS ACIDOPHILUS TAB PO SCH ×3 (08:50→17:05)
[2017-01-09] MEDS: TRIAMTERENE/HCTZ 37.5 MG/25 MG TAB PO SCH (08:50)
[2017-01-09] MEDS: SODIUM CHLORIDE 0.9% FLUSH 10 ML FLUSH IV FLUSH SCH ×2 (08:52→21:00)
[2017-01-09] MEDS: FLUTICASONE PROPIONATE 50 MCG/ACT 16 GM NASAL SPRAY NASAL SCH (08:52)
[2017-01-09] MEDS: ASPIRIN EC 325 MG TABEC PO SCH (08:52)
[2017-01-09] MEDS: DOCUSATE SODIUM 50 MG/SENNA 8.6 MG TAB PO SCH ×2 (08:55→21:00)
[2017-01-09 12:18] LABS: BICARBONATE 23.7 MEQ/L (21.0-32.0); POTASSIUM 3.7 MEQ/L (3.5-5.1)
[2017-01-09 13:36] LABS: C. DIFF EPI 027 PRESUMPTIVE NEGATIVE (NEGATIVE)
[2017-01-09 20:12] LABS: BICARBONATE 22.1 MEQ/L (21.0-32.0); POTASSIUM 4.1 MEQ/L (3.5-5.1)
[2017-01-09] MEDS: ATORVASTATIN 20 MG TAB PO SCH (20:59)
[2017-01-09] MEDS: LORazepam 1 MG TAB PO SCH (21:00)
[2017-01-09] MEDS: SODIUM CHLOR 0.9% 1000 ML INJ 1,000 ML IV SCH (21:08)
[2017-01-10 00:36] VITALS: BP 121/50; PULSE 75; RESP 16; TEMP 98.2; O2SAT 97
[2017-01-10 04:52] VITALS: BP 142/63; PULSE 76; RESP 20; TEMP 98.3; O2SAT 95
[2017-01-10] MEDS: LEVOTHYROXINE SODIUM 125 MCG TAB PO SCH (05:14)
[2017-01-10] MEDS: AMPICILLIN-SULBACTAM INJ 1,500 MG in SODIUM CHLORIDE 0.9% INJ 100 ML IV SCH (05:14)
[2017-01-10] MEDS: HEPARIN SODIUM - SQ 10,000 UNITS/ML VIAL SQ SCH ×2 (05:15→14:00)
[2017-01-10 05:56] LABS: BICARBONATE 24.2 MEQ/L (21.0-32.0); POTASSIUM 3.8 MEQ/L (3.5-5.1)
[2017-01-10 07:45] VITALS: BP 119/58; PULSE 75; RESP 17; TEMP 98.7; O2SAT 91
[2017-01-10] MEDS: INSULIN ASPART SUPPLEMENTAL SCALE SQ SCH ×2 (08:00→12:00)
[2017-01-10] MEDS: LACTOBACILLUS ACIDOPHILUS TAB PO SCH ×2 (08:15→13:35)
[2017-01-10] MEDS: ATENOLOL 50 MG TAB PO SCH (08:15)
[2017-01-10] MEDS: ASPIRIN EC 325 MG TABEC PO SCH (08:15)
[2017-01-10] MEDS: TRIAMTERENE/HCTZ 37.5 MG/25 MG TAB PO SCH (08:15)
[2017-01-10] MEDS: FLUTICASONE PROPIONATE 50 MCG/ACT 16 GM NASAL SPRAY NASAL SCH (08:17)
[2017-01-10] MEDS: SODIUM CHLORIDE 0.9% FLUSH 10 ML FLUSH IV FLUSH SCH (08:19)
[2017-01-10] MEDS: DOCUSATE SODIUM 50 MG/SENNA 8.6 MG TAB PO SCH (08:20)
[2017-01-10] MEDS ORDERED: SODI1TAB PO (08:51)
[2017-01-10] MEDS ORDERED: AUGM500T7 PO (08:53)
--- NOTE | 2017-01-10 08:57 | HHI.PR ---
Subjective Remarks Pt complains of a headache, feels a little more congested this morning but not as bad compared to when she came in. having some loose stools from abx. feels comfortable going home later today. about to eat breakfast. Objective Vitals Vital Signs Date Time Temp Pulse Resp B/P (MAP) Pulse Ox O2 Delivery O2 Flow Rate FiO2 01/10/17 07:45 98.7 75 17 119/58 (78) 91 01/10/17 04:52 98.3 76 20 142/63 (89) 95 01/10/17 00:36 98.2 75 16 121/50 (73) 97 01/09/17 20:11 68 01/09/17 20:06 98.5 74 16 120/51 (74) 97 01/09/17 17:10 88 01/09/17 17:10 88 01/09/17 16:00 98.3 67 18 140/58 (85) 94 01/09/17 12:00 98.7 62 18 130/56 (80) 98 I/O 01/09/17 01/09/17 01/09/17 01/10/17 01/10/17 01/10/17 07:00 15:00 23:00 07:00 15:00 23:00 Intake Total 680 ml 1013 ml 640 ml 100 ml Output Total 300 ml Balance 680 ml 1013 ml 340 ml 100 ml Intake Oral 480 ml 240 ml IV Total 680 ml 533 ml 400 ml 100 ml Output Urine Total 300 ml # Voids 2 4 1 # Bowel Movements 3 2 1 0 Result Diagram: 01/08/17 0516 01/10/17 0444 Imaging Last Impressions Chest X-Ray 01/07/176 Signed Impressions: Service Date/Time: December 19:55 - CONCLUSION: 1. Mild basilar atelectasis. No effusion or pneumothorax. Rod Posey MD Objective Remarks GENERAL: Elderly female lying in bed EYES: Extraocular motions intact. ENT: Airway patent. NECK: Trachea midline. CARDIOVASCULAR: Regular rate and rhythm without murmurs. RESPIRATORY: Clear to auscultation. Breath sounds equal bilaterally. No wheezes. GASTROINTESTINAL: Abdomen soft, non-tender, nondistended. No guarding. MUSCULOSKELETAL: Extremities without edema. No calf tenderness. Negative Homans sign bilaterally. NEUROLOGICAL: Awake and alert. Cranial nerves II through XII intact. Motor and sensory grossly within normal limits. Normal speech. A/P Assessment and Plan 1. Hyponatremia improving, now up to 132. Gentle IV fluid hydration, rate to 50ml/hr. continue Fluid restriction serum and urine osm low, Na and Cr wnl added 1 g sodium chloride. recheck BMP in 3-5 days as an outpatient 2. Acute sinusitis/SOB Patient's difficulty breathing seems to be related to her upper airway congestion Chest x-ray negative for acute process. Encourage IS use q1hr while awake. Lungs CTAB consider CT sinuses if no improvement, however she is so will hold off. May be done as an outpatient. pt responding to abx. on unasyn IV q6hrs as she does have lots of nasal drainage and phlegm and per pt this has been going on x 3 weeks. Will transition to po augmentin. sputum cx growing normal marci flonase to see if this help relieve her symptoms. Elevated lactic acid, suspect from dehydration. now resolved. blood cx and GAS cultures neg to date flu and rapid strep neg. 2D echo shows EF of 50-55% 3. Diarrhea C. Diff neg lactinex scheduled and Imodium as needed 4. Hypokalemia resolved 5. Type 2 diabetes mellitus SSI 6. CAD/hypothyroidism/hypertension/hyperlipidemia/anxiety Continue home medications FEN Heart healthy diet w fluid restriction NS at 50 cc/hr Electrolytes: Monitor and replete when necessary Heparin Discharge Planning anticipate d/c later today or tomorrow morning. Erin Austin MD Jan 10, 2017 08:57
--- NOTE | 2017-01-10 08:59 | HHI.DS ---
Discharge Summary Admission Date Jan 08, 2017 at 01:18 Discharge Date: Jan 10, 2017 Admitting Diagnosis hyponatremia, sinus congestion (1) Sinusitis ICD Code: J32.9 - Chronic sinusitis, unspecified (2) Hyponatremia ICD Code: E87.1 - Hypo-osmolality and hyponatremia Status: Acute Procedures none Brief History - From Admission 81-year-old female with past medical history significant for coronary artery disease, CHF, type 2 diabetes mellitus, hypertension, hyperlipidemia, hypothyroidism and a history of breast and colon cancer presents to the emergency department with a chief complaint of a 3 week history of a sinus infection. The patient reports that she is unable to breathe and is feeling more weak than previous. She reports completing a course of antibiotics prescribed to her by her primary care physician, although she does not know the name of the antibiotic. She reports despite completion of the antibiotic her symptoms have not resolved. She endorses subjective fevers. Chest x-ray showed mild basilar atelectasis. No leukocytosis. Afebrile. Satting 96% on room air. Patient was found to have electrolyte abnormalities including a sodium of 123, potassium of 3.4, creatinine of 1.12 and an elevated lactic acid at 2.6. She denies any increasing fatigue and reports she just wants her sinus infection to be cured. CBC/BMP: 01/08/17 0516 01/10/17 0444 Significant Findings Laboratory Tests Test 01/07/17 23:05 01/07/17 23:18 01/07/17 23:45 01/08/17 02:12 Monocytes (%) (Auto) 10.6 % (0.0-8.0) Monocytes # (Auto) 1.1 TH/MM3 (0-0.9) Blood Urea Nitrogen 27 MG/DL (7-18) Creatinine 1.12 MG/DL (0.50-1.00) Random Glucose 140 MG/DL (74-106) Total Protein 8.3 GM/DL (6.4-8.2) Sodium Level 123 MEQ/L (136-145) Potassium Level 3.4 MEQ/L (3.5-5.1) Chloride Level 89 MEQ/L (98-107) Estimat Glomerular Filtration Rate 47 ML/MIN (>89) Urine Turbidity HAZY (CLEAR) Urine Occult Blood TRACE (NEG) Urine Leukocyte Esterase MOD (NEG) Urine WBC 7 /hpf (0-5) Urine Bacteria RARE /hpf (NONE) Urine Mucus FEW /lpf (OCC) Lactic Acid Level 2.6 mmol/L (0.4-2.0) 2.2 mmol/L (0.4-2.0) Test 01/08/17 05:16 01/08/17 11:43 01/08/17 18:48 01/09/17 03:18 Red Blood Count 3.87 MIL/MM3 (4.00-5.30) Hemoglobin 10.5 GM/DL (11.6-15.3) Hematocrit 31.3 % (35.0-46.0) Monocytes (%) (Auto) 12.2 % (0.0-8.0) Monocytes # (Auto) 1.1 TH/MM3 (0-0.9) Blood Urea Nitrogen 24 MG/DL (7-18) 22 MG/DL (7-18) 19 MG/DL (7-18) Calcium Level 8.0 MG/DL (8.5-10.1) 7.9 MG/DL (8.5-10.1) 7.8 MG/DL (8.5-10.1) 7.9 MG/DL (8.5-10.1) Sodium Level 127 MEQ/L (136-145) 126 MEQ/L (136-145) 127 MEQ/L (136-145) 129 MEQ/L (136-145) Chloride Level 93 MEQ/L (98-107) 93 MEQ/L (98-107) 94 MEQ/L (98-107) 96 MEQ/L (98-107) Estimat Glomerular Filtration Rate 55 ML/MIN (>89) 68 ML/MIN (>89) 66 ML/MIN (>89) 74 ML/MIN (>89) Random Glucose 154 MG/DL (74-106) 138 MG/DL (74-106) Potassium Level 3.4 MEQ/L (3.5-5.1) 3.4 MEQ/L (3.5-5.1) Serum Osmolality 274 MOSM/KG (275-295) Test 01/09/17 11:00 01/09/17 11:40 01/09/17 19:28 01/09/17 22:00 Random Glucose 177 MG/DL (74-106) 217 MG/DL (74-106) Calcium Level 8.1 MG/DL (8.5-10.1) 8.1 MG/DL (8.5-10.1) Sodium Level 127 MEQ/L (136-145) 127 MEQ/L (136-145) Chloride Level 94 MEQ/L (98-107) 94 MEQ/L (98-107) Estimat Glomerular Filtration Rate 75 ML/MIN (>89) 64 ML/MIN (>89) Urine Osmolality 273 MOSM/KG (300-1300) Test 01/10/17 04:44 Calcium Level 8.3 MG/DL (8.5-10.1) Sodium Level 132 MEQ/L (136-145) Imaging Last Impressions Chest X-Ray 01/07/172145 Signed Impressions: Service Date/Time: December 19:55 - CONCLUSION: 1. Mild basilar atelectasis. No effusion or pneumothorax. Rod Posey MD PE at Discharge GENERAL: Elderly female lying in bed EYES: Extraocular motions intact. ENT: Airway patent. NECK: Trachea midline. CARDIOVASCULAR: Regular rate and rhythm without murmurs. RESPIRATORY: Clear to auscultation. Breath sounds equal bilaterally. No wheezes. GASTROINTESTINAL: Abdomen soft, non-tender, nondistended. No guarding. MUSCULOSKELETAL: Extremities without edema. No calf tenderness. Negative Homans sign bilaterally. NEUROLOGICAL: Awake and alert. Cranial nerves II through XII intact. Motor and sensory grossly within normal limits. Normal speech. Pt update on day of discharge I was notified by RN that pt feels much better and would like to go home today. She has a ride at 3 pm Hospital Course 1. Hyponatremia improving, now up to 132. s/p Gentle IV fluid hydration continue Fluid restriction 1500ml/day serum and urine osm low, Na and Cr wnl added 1 g sodium chloride. recheck BMP in 3-5 days as an outpatient 2. Acute sinusitis/SOB Patient's difficulty breathing seems to be related to her upper airway congestion Chest x-ray negative for acute process. Encourage IS use q1hr while awake. Lungs CTAB consider CT sinuses if no improvement, however she is so will hold off. May be done as an outpatient. pt responding to abx. on unasyn IV q6hrs as she does have lots of nasal drainage and phlegm and per pt this has been going on x 3 weeks. Will transition to po augmentin as an outpatient. sputum cx growing normal marci flonase to see if this help relieve her symptoms. Elevated lactic acid, suspect from dehydration. now resolved. blood cx and GAS cultures neg to date flu and rapid strep neg. 2D echo shows EF of 50-55% 3. Diarrhea C. Diff neg lactinex scheduled and Imodium as needed Pt Condition on Discharge: Stable Discharge Disposition: Discharge Home Discharge Time: > 30 minutes Discharge Instructions Follow up Referrals: PCP Follow-up - 1 Week New Medications: Amlodipine (Amlodipine) 5 Mg Tab 5 MG PO DAILY for Blood Pressure Management, #30 TAB 0 Refills Amoxicillin-Clavulanate (Augmentin) 500-125 mg Tab 500 MG PO BID for Infection, #8 TAB 0 Refills Sodium Chloride (Sodium Chloride) 1 Gram Tab 1 GM PO DAILY for 5 Days, #5 TAB Continued Medications: Aspirin DR (Ecotrin Regular Strength) 325 Mg Tabdr 325 MG PO DAILY, #30 TAB 0 Refills Atenolol (Atenolol) 50 Mg Tab 50 MG PO DAILY Atorvastatin (Atorvastatin) 20 Mg Tab 20 MG PO nightly Atorvastatin (Lipitor) 20 Mg Tab 20 MG PO HS for Cholesterol Management, #30 TAB 0 Refills Glimepiride (Glimepiride) 2 Mg Tab 4 MG PO BID Levothyroxine (Synthroid) 125 Mcg Tab 125 MCG PO AC BREAKFAST Levothyroxine (Synthroid) 125 Mcg Tab 125 MCG PO DAILY@0600 for Thyroid, #30 TAB 0 Refills Loratadine (Claritin) 10 Mg Cap 10 MG PO nightly for Allergy Management, CAP 0 Refills Lorazepam (Lorazepam) 1 Mg Tab 1 MG PO HS, TAB 0 Refills Metformin (Metformin) 500 Mg Tab 500 MG PO BID Vitamin E (Vitamin E) 100 Unit Tab 400 UNITS PO DAILY for Nutritional Supplement, TAB 0 Refills Discontinued Medications: [Triamterene-Hctz] () 37.5mg-25mg 0.5 TAB PO DAILY Erin Austin MD Jan 10, 2017 08:58
[2017-01-10] MEDS ORDERED: LOPERAMIDE HCL 2 MG CAP PO ONE (09:00)
[2017-01-10] MEDS ORDERED: SODIUM CHLORIDE 1 GRAM TAB PO SCH (09:00)
[2017-01-10] MEDS ORDERED: CALCIUM CARBONATE 500 MG CHEWABLE TAB CHEW SCH (09:15)
[2017-01-10] MEDS ORDERED: TRIA1CAP6 PO (09:18)
[2017-01-10] MEDS ORDERED: AMLO5TAB2 PO (09:23)
[2017-01-10 12:00] VITALS: BP 122/53; PULSE 62; RESP 17; TEMP 97.1; O2SAT 97
[2017-01-10] MEDS ORDERED: LOPERAMIDE HCL 2 MG CAP PO PRN (13:00)
[2017-01-10 15:01] VITALS: PULSE 78
[2017-01-10] MEDS ORDERED: AMOXICILLIN/CLAVULANATE K 500 MG TAB PO SCH (21:00)
[2017-01-11] MEDS ORDERED: amLODIPine BESYLATE 5 MG TAB PO SCH (09:00)
== END 2017-01-10 16:07 | disposition home or self-care (01) | DRG 641 ==
LOC: NEPD 21:29 → NEDA 01-08 00:44 → OBSVTOIN 01-08 01:18 → N06A 01-08 02:17
PROVIDERS: ADMIT Hospitalist; ATTEND Hospitalist
DX: E87.1 Hypo-osmolality and hyponatremia (principal); E11.9 Type 2 diabetes mellitus without complications; Z79.84 Long term (current) use of oral hypoglycemic drugs; J01.90 Acute sinusitis, unspecified; E87.6 Hypokalemia; R19.7 Diarrhea, unspecified; E03.9 Hypothyroidism, unspecified; I10 Essential (primary) hypertension; E78.5 Hyperlipidemia, unspecified; I25.10 Atherosclerotic heart disease of native coronary artery without angina pectoris; R74.0 Nonspecific elevation of levels of transaminase and lactic acid dehydrogenase [LDH]; Z85.3 Personal history of malignant neoplasm of breast; Z85.038 Personal history of other malignant neoplasm of large intestine
CPT/HCPCS: 71010; 80048; 80053; 81001; 82570; 82948; 83605; 83880; 83930; 83935; 84300; 85025; 87040; 87070; 87081; 87086; 87205; 87493; 87804; 87880; 93306; 94150; 96365; 96368; J0295; J0456; J0696; J1644; J1815; J2405; J7030; J7040; J7050

== ENCOUNTER → 2017-01-13 | Outpatient (CLI) | payer MEDICARE, BC ==
[~2017-01-13] MED LIST changes: +AMLO5TAB2 PO; +ASPI-146 PO; -ASPI325T24 PO; -ATEN1TAB74 PO; +ATEN50TA PO; +ATOR20TA15 PO; +AUGM500T7 PO; -BENZ100 PO; -BISMS PO; +CLAR10CA3 PO; -FEXO180T PO; +GLIM2TAB PO; -LACT PO; +LEVO.125 PO; +LIPI20TA PO; -LIPI40TA PO; -LOPE2 PO; -LORA-474 PO; +LORA1TAB12 PO; -MAXZ25 PO; -METF500 PO; +METF500T PO; +SODI1TAB PO; -SYNT125T PO; +VITA100T65 PO; -VITA400C70 PO
[2017-01-13 09:28] LABS: BASOPHIL # 0.1 TH/MM3 (0-0.2); BASOPHIL % 1.3 % (0.0-2.0); EOSINOPHIL # 0.2 TH/MM3 (0-0.4); EOSINOPHIL % 2.7 % (0.0-4.0); HEMATOCRIT 35.1 % (35.0-46.0); HEMO FLAGS DIFF FINAL; LYMPH % 36.9 % (9.0-44.0); LYMPHOCYTE # 2.8 TH/MM3 (1.0-4.8); MEAN CELL VOLUME 80.2 FL (80.0-100.0); MEAN CORPUSCULAR HEMOGLOBIN 27.3 PG (27.0-34.0); MONO % 6.8 % (0.0-8.0); NEUT % 52.3 % (16.0-70.0); PLATELET COUNT 377 TH/MM3 (150-450); RED BLOOD COUNT 4.37 MIL/MM3 (4.00-5.30); RED CELL DISTRIBUTION WIDTH 14.2 % (11.6-17.2); WHITE BLOOD COUNT 7.6 TH/MM3 (4.0-11.0)
[2017-01-13 09:41] LABS: ANION GAP 7 MEQ/L (5-15); AST (GOT) 33 U/L (15-37); BICARBONATE 27.1 MEQ/L (21.0-32.0); BLOOD UREA NITROGEN 8 MG/DL (7-18); CHLORIDE 97 MEQ/L (98-107); GLOMERULAR FILTRATION RATE 71 ML/MIN (>89); GLUCOSE,FASTING 124 MG/DL (74-99); POTASSIUM 3.7 MEQ/L (3.5-5.1); SODIUM (NA) 131 MEQ/L (136-145)
[2017-01-13 09:51] LABS: ALKALINE PHOSPHATASE 87 U/L (45-117); ALT (GPT) 36 U/L (10-53); HDL CHOLESTEROL 45.1 MG/DL (40.0-60.0); LDL CHOLESTEROL 53 MG/DL (0-99); TOTAL BILIRUBIN ADULT 0.4 MG/DL (0.2-1.0)
[2017-01-13 14:07] LABS: BACTERIA, URINE RARE /hpf; BLOOD, URINE NEG (NEG); COMMENT (UR) CULT NOT INDICATED; CULTURE IF INDICATED CULT NOT INDICATED; GLUCOSE,URINE NEG (NEG); KETONE, URINE NEG (NEG); MUCUS URINE FEW /lpf (OCC); NITRITE,URINE NEG (NEG); SQUAMOUS EPITHELIAL CELL URINE 5 /hpf (0-5); URINE COLOR YELLOW (YELLW/STRAW)
[2017-01-13 15:47] LABS: MICRO ALBUMIN RANDOM URINE RAW 73.6 MG/L (0.0-30.0)
[2017-01-13 17:28] LABS: HEMOGLOBIN A1a 1.2 %; HEMOGLOBIN A1b 2.8 %; HEMOGLOBIN Ao 80.6 %; HEMOGLOBIN LA1C 2.4 %; HEMOGLOBIN P3 4.5 %
== END ==
LOC: PLAB 07:40
PROVIDERS: ATTEND Internal Medicine
DX: E78.00 Pure hypercholesterolemia, unspecified (principal); E11.65 Type 2 diabetes mellitus with hyperglycemia; I10 Essential (primary) hypertension
CPT/HCPCS: 36415; 80053; 80061; 81001; 82043; 83036; 84443; 85025

== ENCOUNTER → 2017-05-17 | Outpatient (CLI) | payer MEDICARE, BC ==
[2017-05-17 13:32] LABS: ALBUMIN 3.7 GM/DL (3.4-5.0); ALT (GPT) 27 U/L (10-53); AST (GOT) 22 U/L (15-37); BICARBONATE 28.2 MEQ/L (21.0-32.0); BLOOD UREA NITROGEN 17 MG/DL (7-18); CALCIUM 8.8 MG/DL (8.5-10.1); CHLORIDE 98 MEQ/L (98-107); CHOLESTEROL 155 MG/DL (120-200); CREATININE 0.84 MG/DL (0.50-1.00); GLOMERULAR FILTRATION RATE 65 ML/MIN (>89); GLUCOSE,FASTING 125 MG/DL (74-99); SODIUM (NA) 136 MEQ/L (136-145)
[2017-05-17 13:35] LABS: ALKALINE PHOSPHATASE 96 U/L (45-117); CHOLESTEROL/ HDL RATIO 2.68 RATIO; HDL CHOLESTEROL 57.7 MG/DL (40.0-60.0); LDL CHOLESTEROL 66 MG/DL (0-99); TOTAL BILIRUBIN ADULT 0.4 MG/DL (0.2-1.0); TOTAL PROTEIN 8.2 GM/DL (6.4-8.2); TRIGLYCERIDES 159 MG/DL (42-150)
[2017-05-17 16:14] LABS: HEMOGLOBIN A1C 7.7 % (4.3-6.0)
== END ==
LOC: PLAB 08:38
PROVIDERS: ATTEND Internal Medicine
DX: E11.65 Type 2 diabetes mellitus with hyperglycemia (principal)
CPT/HCPCS: 36415; 80053; 80061; 83036